=== PATIENT | male | born 1990 | race African-American/Black ===

== ENCOUNTER 2025-03-01 17:39 | Emergency (ER) | payer MEDICAID ==
[~2025-03-01] VITALS: Ht 165.1 cm; Wt 75.0 kg
[2025-03-01 17:49] VITALS: O2SAT 99
[2025-03-01] MEDS ORDERED: TC025C15 TP (20:01)
[2025-03-01] MEDS ORDERED: CETI10CA11 MT (20:01)
[2025-03-01 20:18] VITALS: BP 147/101; PULSE 98; RESP 18; TEMP 36.7; O2SAT 99
== END 2025-03-01 20:30 | disposition home or self-care (01) ==
LOC: ER 17:39
DX: J30.9 Allergic rhinitis, unspecified (principal); G80.9 Cerebral palsy, unspecified; I10 Essential (primary) hypertension; Z79.899 Other long term (current) drug therapy
CPT/HCPCS: 99283